=== PATIENT | male | born 1970 | race Caucasian/White ===

== ENCOUNTER 2017-06-02 09:21 | Emergency (ER) | payer OTHER ==
[~2017-06-02] VITALS: Ht 157.5 cm; Wt 95.6 kg
[2017-06-02 09:24] VITALS: Ht 157.5 cm; Wt 95.6 kg
[2017-06-02] MEDS ORDERED: HYDROmorphONE 1 MG/ML SYG IV STA (09:43)
[2017-06-02] MEDS ORDERED: SOD CHLORIDE 0.9% 1,000 ML IV STA (09:43)
[2017-06-02] MEDS ORDERED: ONDANSETRON 4 MG INJ IV STA (09:43)
--- NOTE | 2017-06-02 09:52 | ERD ---
ER Documentation Chief Complaint Chief Complaint Complains of abdominal pain since this am HPI This is a 46-year-old male with a history of diabetes type 2, hyperlipidemia, hypertension with history of umbilical hernia and repair 5 years ago presenting to the emergency department complaining of severe epigastric abdominal pain that radiates to his right lower quadrant. Patient complains of 4-5 nonbilious nonbloody episodes of vomiting with one episode of diarrhea. He states that his last meal rice was last night. She states that he has tried Pepto-Bismol without any relief ROS All systems reviewed and are negative except as per history of present illness. Medications Home Meds Active Scripts Ciprofloxacin Hcl* (Ciprofloxacin Hcl*) 500 Mg Tablet, 500 MG PO BID for 5 Days , TAB Prov:KATE WILLIAM PA-C 06/02/17 Ondansetron (Ondansetron Odt) 4 Mg Tab.rapdis, 4 MG PO Q6H Y for NAUSEA AND/OR VOMITING, #30 TAB Prov:KATE WILLIAM PA-C 06/02/17 Ibuprofen* (Ibuprofen*) 400 Mg Tablet, 400 MG PO Q6H Y for PAIN, #30 TAB Prov:KATE WILLIAM PA-C 06/02/17 Hydrocodone/Acetaminophen ([employer] 5-325 Tablet) 1 Each Tablet, 1 TAB PO Q6H Y for PAIN, #20 TAB Prov:KATE WILLIAM PA-C 06/02/17 Allergies Allergies: Coded Allergies: Penicillins (Verified Allergy, Intermediate, Rash, 06/02/17) PMhx/Soc History of Surgery: No Anesthesia Reaction: No Hx Neurological Disorder: No Hx Respiratory Disorders: No Hx Cardiac Disorders: No Hx Psychiatric Problems: No Hx Miscellaneous Medical Probl: No Hx Alcohol Use: No Hx Substance Use: No Hx Tobacco Use: No Smoking Status: Never smoker Physical Exam Vitals Vital Signs Date Time Temp Pulse Resp B/P Pulse Ox O2 Delivery O2 Flow Rate FiO2 06/02/17 11:34 83 18 134/84 98 Room Air 06/02/17 09:24 98.0 85 20 149/109 96 Physical Exam GENERAL: well-developed/well-nourished, in no apparent distress, non-toxic appearing HENT: NC/AT, moist mucous membranes EYES: Conjunctiva normal NECK: Supple, no lymphadenopathy PULM: CTA bilaterally, no rales, rhonchi, or wheezing heard CV: Normal S1S2, RRR, good capillary refill GI: Soft, non-distended, tender to palpation RIGHT lower quadrant Normal bowel sounds, no masses or organomegaly felt on exam No gross peritonitis, no bruits Negative Rovsing, negative Saenz, negative McBurney's point, Negative CVAT BACK: No masses EXT: No clubbing, cyanosis, or edema NEURO: Alert and Orientated SKIN: Intact, normal turgor PSYCH: Normal mood and mentation Result Diagram: 06/02/17 0940 06/02/17 0950 Results 24 hrs Laboratory Tests Test 06/02/17 09:40 06/02/17 09:50 White Blood Count 7.810^3/ul Red Blood Count 5.4410^6/ul Hemoglobin 17.8g/dl Hematocrit 51.7% Mean Corpuscular Volume 95.0fl Mean Corpuscular Hemoglobin 32.7pg Mean Corpuscular Hemoglobin Concent 34.4g/dl Red Cell Distribution Width 11.6% Platelet Count 81762^3/UL Mean Platelet Volume 10.8fl Neutrophils % 68.0% Lymphocytes % 21.6% Monocytes % 7.3% Eosinophils % 1.7% Basophils % 0.8% Nucleated Red Blood Cells % 0.0/100WBC Neutrophils # 5.310^3/ul Lymphocytes # 1.710^3/ul Monocytes # 0.610^3/ul Eosinophils # 0.110^3/ul Basophils # 0.110^3/ul Nucleated Red Blood Cells # 0.010^3/ul Urine Color YELLOW Urine Clarity CLEAR Urine pH 5.0 Urine Specific [place] 1.026 Urine Ketones NEGATIVEmg/dL Urine Nitrite NEGATIVEmg/dL Urine Bilirubin NEGATIVEmg/dL Urine Urobilinogen NEGATIVEmg/dL Urine Leukocyte Esterase NEGATIVELeu/ul Urine Microscopic RBC 1/HPF Urine Microscopic WBC 1/HPF Urine Mucus FEW/HPF Urine Hemoglobin NEGATIVEmg/dL Urine Glucose NEGATIVEmg/dL Urine Total Protein 2+mg/dl Sodium Level 142mmol/L Potassium Level 4.3mmol/L Chloride Level 104mmol/L Carbon Dioxide Level 28mmol/L Anion Gap 14 Blood Urea Nitrogen 16mg/dl Creatinine 0.63mg/dl Glucose Level 164mg/dl Calcium Level 9.9mg/dl Total Bilirubin 0.3mg/dl Direct Bilirubin 0.00mg/dl Indirect Bilirubin 0.3mg/dl Aspartate Amino Transf (AST/SGOT) 28IU/L Alanine Aminotransferase (ALT/SGPT) 47IU/L Alkaline Phosphatase 68IU/L Total Protein 8.0g/dl Albumin 4.3g/dl Globulin 3.70g/dl Albumin/Globulin Ratio 1.16 Lipase 101U/L Current Medications Medications (Trade) Dose Ordered Sig/Katey Route PRN Reason Start Time Stop Time Status Last Admin Dose Admin Sodium Chloride (NS) 1,000 ml @ 1,000 mls/hr Q1H STAT IV 06/02/17 09:43 06/02/17 10:42 DC 06/02/17 09:58 Ondansetron HCl (Zofran Inj) 4 mg ONCE STAT IV 06/02/17 09:43 06/02/17 09:50 DC 06/02/17 09:58 Hydromorphone HCl (Dilaudid) 1 mg ONCE STAT IV 06/02/17 09:43 06/02/17 09:50 DC 06/02/17 09:59 Procedures/MDM 46-year-old male with history of diabetes type 2, hypertension umbilical hernia presents to the emergency department waiting of severe epigastric abdominal pain associated with nausea vomiting diarrhea. Patient was found to have cholelithiasis without any evidence of sepsis, choledocholithiasis, cholecystitis or cholangitis, pancreatitis or other acute abdomen conditions due to physical examination and diagnostic testing. He is also found to have fatty liver, mild focal colitis, umbilical hernia and enlarged prostate. Patient will be treated empirically with Cipro for colitis. Patient was also given prescription for [employer], Zofran, ibuprofen. Patient appears well and nontoxic appearing with stable vital signs.Stable to be discharged home. Lab work was drawn. CBC did not show any evidence of leukocytosis or anemia. CMP did not show any evidence of renal, liver, or electrolyte abnormalities. Lipase was normal. UA did not show any evidence of hemoglobin or urinary tract infection. Diagnostic testing and instructions were given to patient. Pain control and antiemetic prescriptions were provided for outpatient self-care. Discussed with patient to follow-up with primary care for GI referral. Precautions were given to return to the ER for fever, intractable pain, increased vomiting, and other worsening signs and symptoms. Patient expressed agreement and understanding of this plan. Gallbladder US: Mild hepatomegaly with diffuse fatty infiltration. Multiple calcified stones and sludge within the gallbladder. No evidence of gallbladder wall thickening or pericholecystic fluid. Mildly dilated CBD. Increased echogenicity of the renal sinus fat, suspicious for renal lipomatosis. CT abdomen and pelvis without contrast 1. Mild thickening of the hernandez of the rectosigmoid colon with borderline adjacent fatty stranding, which may represent a very mild focal colitis. No evidence of perforation or focal fluid collections. 2. Fat-containing umbilical hernias, without evidence of contained bowel loops. Mild fat stranding is identified, which may represent fat necrosis. 3. No evidence of bowel obstruction. The appendix is within normal limits. 4. Cholelithiasis. 5. Fatty liver. 6. Mild prostatomegaly. Departure Diagnosis: Primary Impression: Colitis Additional Impression: Cholelithiasis Condition: Stable KATE WILLIAM PA-C Jun 02, 2017 09:52
[2017-06-02 10:08] LABS: BASOPHIL # 0.1 10^3/ul (0.0-0.1); BASOPHILS % 0.8 % (0.0-2.0); EOSINOPHILS # 0.1 10^3/ul (0.0-0.5); EOSINOPHILS % 1.7 % (0.0-7.0); HEMATOCRIT 51.7 % (42.0-52.0); HEMOGLOBIN 17.8 g/dl (14.0-18.0); LYMPHOCYTES # 1.7 10^3/ul (0.8-2.9); LYMPHOCYTES % 21.6 % (15.0-51.0); MEAN CORPUSCULAR HEMOGLOBIN 32.7 pg (29.0-33.0); MEAN CORPUSCULAR HGB CONC 34.4 g/dl (32.0-37.0); MEAN PLATELET VOLUME 10.8 fl (7.4-10.4); MONOCYTE # 0.6 10^3/ul (0.3-0.9); MONOCYTES % 7.3 % (0.0-11.0); NEUTROPHIL # 5.3 10^3/ul (1.6-7.5); PLATELET COUNT 239 10^3/UL (140-415); RED BLOOD COUNT 5.44 10^6/ul (4.70-6.10); RED CELL DISTRIBUTION WIDTH 11.6 % (11.5-14.5); WHITE BLOOD COUNT 7.8 10^3/ul (4.8-10.8)
[2017-06-02 10:10] LABS: ADD UMIC YES; UR ASCORBIC ACID 40 mg/dL (NEGATIVE); UR BILIRUBIN (Dip) NEGATIVE (NEGATIVE); UR BLOOD (Dip) NEGATIVE (NEGATIVE); UR CLARITY CLEAR (CLEAR); UR COLOR YELLOW (YELLOW); UR GLUCOSE (Dip) NEGATIVE (NEGATIVE); UR KETONES (Dip) NEGATIVE (NEGATIVE); UR LEUKOCYTE ESTERASE (Dip) NEGATIVE Leu/ul (NEGATIVE); UR MUCUS FEW /HPF (NONE SEEN); UR NITRITE (Dip) NEGATIVE (NEGATIVE); UR RBC 1 /HPF (0-5); UR SPECIFIC GRAVITY (Dip) 1.026 (1.003-1.030); UR TOTAL PROTEIN (Dip) 2+ mg/dl (NEGATIVE); UR UROBILINOGEN (Dip) NEGATIVE (NEGATIVE)
--- NOTE | 2017-06-02 10:31 | RADRPT ---
PROCEDURE: US Abdomen. CLINICAL INDICATION: abdominal pain TECHNIQUE: Multiple real-time images were acquired of the patient's right upper quadrant abdomen a nd retroperitoneum utilizing a high resolution transducer. COMPARISON: None FINDINGS: The liver demonstrates increased echogenicity. The liver is normal in size and no focal solid lesio ns are seen. The liver measures 19.5 cm in length. The portal vein is patent with normal direction o f flow. No intrahepatic biliary dilatation is seen. Multiple calcified stones and sludge seen within the gallbladder. There is no pericholecystic fluid or gallbladder wall thickening. The common bile duct measures 7 mm in maximal dimension. The pancreas is not seen due to overlying bowel gas. No free fluid is identified. The right kidney is normal in size, and demonstrate normal cortical thickness. There is slightly inc reased echogenicity of the renal sinus fat. The right kidney measures 12.3 cm in long dimension. Th ere is no evidence of hydronephrosis. There are no kidney stones. RPTAT: AA IMPRESSION: Mild hepatomegaly with diffuse fatty infiltration. Multiple calcified stones and sludge within the gallbladder. No evidence of gallbladder wall thicken ing or pericholecystic fluid. Mildly dilated CBD. Increased echogenicity of the renal sinus fat, suspicious for renal lipomatosis. .Matias Tim MD, MD Date Time Electronically viewed and signed by .Matias Tim MD, on 06/02/2017 10:30 .S/
[2017-06-02 10:43] LABS: ALBUMIN 4.3 g/dl (3.3-4.9); ALBUMIN/GLOBULIN RATIO 1.16; BILIRUBIN,INDIRECT 0.3 mg/dl (0-1.1); BILIRUBIN,TOTAL 0.3 mg/dl (0.2-1.3); CALCIUM 9.9 mg/dl (8.4-10.2); CREATININE 0.63 mg/dl (0.61-1.24); POTASSIUM 4.3 mmol/L (3.5-5.1)
[2017-06-02] MEDS ORDERED: IBUP400T22 PO (10:51)
[2017-06-02] MEDS ORDERED: HYDR-906 PO (10:51)
[2017-06-02] MEDS ORDERED: ONDA4TAB14 PO (10:51)
--- NOTE | 2017-06-02 10:55 | RADRPT ---
PROCEDURE: CT ABDOMEN AND PELVIS WITHOUT CONTRAST. CLINICAL INDICATION: Abdominal pain. Status post hernia repair TECHNIQUE: CT scan of the abdomen and pelvis without contrast was performed on a multidetector hig h-resolution CT scanner. The patient was scanned without intravenous contrast. Coronal and sagittal reformatted images were obtained from the axial source images. Images were reviewed on a high-resol [employer] PACS workstation. The total exam CTDI equals 18.3 mGy and the total exam DLP equals 1157.7 mGy -cm. One or more of the following dose reduction techniques were used: Automated exposure control. Adjustment of the mA and/or kV according to patient size. Use of iterative reconstruction technique. DICOM images are available COMPARISON: None FINDINGS: CT abdomen: The lung bases are clear. The heart size is within normal limits. There is no significant pericardia l effusion. Hepatic morphology is within limits. There is diffuse fatty infiltration of liver. Gallstones are no reynaldo within the gallbladder. No gross CT evidence of inflammatory changes. No evidence of intrahepati c or extrahepatic biliary dilatation. The spleen and pancreas are within normal limits. Both adrenal glands are within normal limits. Both kidneys are in normal anatomic position. No evidence of obstruction or hydronephrosis. No gross renal/ureteric calculi. The visualized GI tract demonstrate normal caliber loops of small and large bowel. No evidence of sawyer wel obstruction. The appendix is within normal limits. There is a fat-containing large periumbilical hernia with some fatty stranding. No evidence of contained bowel loops. The unenhanced aorta is unremarkable. There is no significant retroperitoneal lymphadenopathy. CT pelvis: The bladder is within normal limits. The prostate gland is mildly enlarged. The rectosigmoid colon d emonstrate mild thickening of the hernandez with borderline adjacent fat stranding. No significant free fluid. No significant pelvic lymphadenopathy. The visualized osseous structures appear to be within normal limits. IMPRESSION: 1. Mild thickening of the hernandez of the rectosigmoid colon with borderline adjacent fatty stranding, which may represent a very mild focal colitis. No evidence of perforation or focal fluid collections . 2. Fat-containing umbilical hernias, without evidence of contained bowel loops. Mild fat stranding i s identified, which may represent fat necrosis. 3. No evidence of bowel obstruction. The appendix is within normal limits. 4. Cholelithiasis. 5. Fatty liver. 6. Mild prostamegaly. RPTAT: AAPP Courtney Zelaya, Physician Date Time Electronically viewed and signed by Courtney Zelaya Physician on 06/02/2017 10:55 JL/
[2017-06-02] MEDS ORDERED: CIPR500T4 PO (11:11)
[2017-06-02 11:34] VITALS: BP 134/84; PULSE 83; RESP 18
== END 2017-06-02 11:36 | disposition home or self-care (01) ==
LOC: FTE 09:21
DX: K52.9 Noninfective gastroenteritis and colitis, unspecified (principal); K80.20 Calculus of gallbladder without cholecystitis without obstruction; I10 Essential (primary) hypertension; E11.9 Type 2 diabetes mellitus without complications
CPT/HCPCS: 36415; 74176; 76705; 80053; 81001; 83690; 85025; 96374; 96375; 99285; J1170; J2405; J7030

== ENCOUNTER 2017-08-17 15:00 | Inpatient (IN) | END 2017-08-23 15:17 | disposition home health service (06) | DRG 335 ==

== ENCOUNTER 2017-11-18 11:07 | Inpatient (IN) | END 2017-11-19 09:30 | disposition home or self-care (01) | DRG 871 ==